=== PATIENT | female | born 1955 | race Caucasian/White ===

== ENCOUNTER 2021-11-05 13:15 | Observation (INO) ==
[2021-11-05] MEDS ORDERED: DUONEB NEB ONE (13:31)
[2021-11-05] MEDS ORDERED: TORADOL IM ONE (13:31)
[2021-11-05] MEDS ORDERED: SOLU-MEDROL 125 MG IM STA (13:31)
--- NOTE | 2021-11-05 13:35 | ED.PDOC ---
General ED Provider: Dr. BROOKS RODARTE MD Chief Complaint: Non-specific Complaint Stated Complaint: mild to mod congested cough and body aches today, hx copd, +covid vaccine and htn, no fever, no lethargy, not on home oxygen Time Seen by Provider: 11/05/21 13:28 Mode of Arrival: Walk-In Information Source: Patient Nursing and Triage Documentation Reviewed and Agree: Yes Does patient meet sepsis criteria?: No System Inflammatory Response Syndrome: Not Applicable Sepsis Protocol: For patient's 13 years and over: Temp is 96.8 and below OR 101 and greater Pulse >90 BPM Resp >20/minute Acutely Altered Mental Status Are patient's symptoms suggestive of a new infection, such as: -Pneumonia -Skin, Soft Tissue -Endocarditis -UTI -Bone, Joint Infection -Implantable Device -Acute Abdominal Infection -Wound Infection -Meningitis -Blood Stream Catheter Infection -Unknown Review of Systems Review Of Systems Constitutional: Reports Malaise; Denies Fever Eyes: Denies Vision change Ears, Nose, Mouth, Throat: Denies Throat pain Respiratory: Reports Cough and Wheezing; Denies Stridor Cardiac: Denies Chest pain GI: Denies Abdominal pain or Vomiting : Denies Frequency Musculoskeletal: Denies Neck pain Skin: Denies Rash or Cyanosis Neurological: Denies Cognitive dysfunction All Other Systems: Other Physical Exam Physical Exam Appearance: Reports No pain distress Ill-appearing: None Pain Distress: None Eyes: Reports Conjunctiva clear ENT: Reports Rhinorrhea Neck: Supple Respiratory: Reports Airway patent and Wheezes; Denies Retractions Cardiovascular: Reports RRR GI/: Reports Nontender Musculoskeletal: Reports ROM intact Skin: Reports Warm and Dry Neurological: Reports Alert and Oriented Psychiatric: Reports Affect appropriate Interpretation Radiology Interpretation Radiology Interpretation By: Radiologist Exam Interpreted: CXR Xray Comments: left base infil Critical Care Note Critical Care Note Total Critical Care Time (mins): 0 Course Course Hematology/Chemistry: 11/05/21 13:45 11/05/21 13:45 Orders, Labs, Meds: Lab Review 11/05/21 11/05/21 11/05/21 13:45 13:45 13:45 WBC 12.37 H RBC 5.14 Hgb 14.8 Hct 43.5 MCV 84.6 MCH 28.8 MCHC 34.0 RDW Coeff of Kyung 12.6 Plt Count 289 Immature Gran % (Auto) 0.3 Neut % (Auto) 61.5 Lymph % (Auto) 28.7 [place] % (Auto) 6.2 Eos % (Auto) 2.7 Baso % (Auto) 0.6 Neut # (Auto) 7.6 H Lymph # (Auto) 3.6 H [place] # (Auto) 0.8 Eos # (Auto) 0.3 Baso # (Auto) 0.1 Immature Gran # (Auto) 0.0 Sodium 140.5 Potassium 3.92 Chloride 104.3 Carbon Dioxide 29.6 Anion Gap 10.52 BUN 11.6 Creatinine 0.80 Estimated GFR (MDRD) 72.00 BUN/Creatinine Ratio 14.50 Glucose 164.5 H Lactic Acid 1.16 Calcium 9.09 Total Bilirubin 0.35 AST 22.9 ALT 18.7 Alkaline Phosphatase 84.5 Total Protein 7.92 Albumin 4.30 Globulin 3.62 Albumin/Globulin Ratio 1.18 SARS CoV-2 RNA Rapid ARABELLA 11/05/21 13:45 WBC RBC Hgb Hct MCV MCH MCHC RDW Coeff of Kyung Plt Count Immature Gran % (Auto) Neut % (Auto) Lymph % (Auto) [place] % (Auto) Eos % (Auto) Baso % (Auto) Neut # (Auto) Lymph # (Auto) [place] # (Auto) Eos # (Auto) Baso # (Auto) Immature Gran # (Auto) Sodium Potassium Chloride Carbon Dioxide Anion Gap BUN Creatinine Estimated GFR (MDRD) BUN/Creatinine Ratio Glucose Lactic Acid Calcium Total Bilirubin AST ALT Alkaline Phosphatase Total Protein Albumin Globulin Albumin/Globulin Ratio SARS CoV-2 RNA Rapid ARABELLA Negative Orders Category Date Time Status CBC W/ AUTO DIFF Stat LAB 11/05/21 13:45 Completed CMP [COMPREHENSIVE METABOLIC PANEL] Stat LAB 11/05/21 13:45 Completed LACTIC ACID Stat LAB 11/05/21 13:45 Completed SARS COV-2 RNA RAPID ARABELLA Stat LAB 11/05/21 13:45 Completed Ipratropium/Albuterol Neb [Duoneb] MEDS 11/05/21 13:31 Discontinued 3 ml NEB ONCE ONE Ketorolac Tromethamine [Toradol] MEDS 11/05/21 13:31 Discontinued 30 mg IM ONCE ONE Methylprednisolone Sod Succ/Pf [Solu-Medrol 125 mg] MEDS 11/05/21 13:31 Discontinued 125 mg IM ONCE STA CHEST, 1V AP ONLY Stat RADS 11/05/21 13:31 Completed Medications Discontinued Medications Generic Name Dose Route Start Last Admin Trade Name Jerry PRN Reason Stop Dose Admin Albuterol/Ipratropium 3 ml 11/05/21 13:31 11/05/21 13:58 Ipratropium/Albuterol Vial.Neb NEB 11/05/21 13:32 3 ml ONCE ONE Administration Ketorolac Tromethamine 30 mg 11/05/21 13:31 11/05/21 13:40 Ketorolac Tromethamine 30 Mg/Ml Vial IM 11/05/21 13:32 30 mg ONCE ONE Administration Methylprednisolone Sodium Succinate 125 mg 11/05/21 13:31 11/05/21 13:40 Methylprednisolone Sod Succ/Pf 125 Mg/2 Ml Vial IM 11/05/21 13:32 125 mg ONCE STA Administration Vital Signs: Temp Pulse Resp BP Pulse Ox 11/05/21 15:30 98.0 F 80 18 176/92 H 93 L 11/05/21 13:21 98.1 F 93 18 179/99 H 92 L Discharge Plan Discharge Patient Disposition: PLACED OBSERVATION Discharge Problem: Pneumonia involving left lung Prescriptions: No Action atorvastatin 40 mg Tablet 40 mg PO BEDTIME carvedilol 12.5 mg Tablet 12.5 mg PO BID Did you review [place] CODING TECHNICIAN?: Not Applicable ED Provider: BROOKS RODARTE Condition: Stable Physician Progress Note: admit to tele obs for pneumonia and hypoxia to hospitalist []
[2021-11-05 13:50] LABS: BASOPHILS # (AUTO) 0.1 K/uL (0-0.2); BASOPHILS % (AUTO) 0.6 % (0.0-3.0); EOSINOPHILS # (AUTO) 0.3 K/ul (0.0-0.7); EOSINOPHILS % (AUTO) 2.7 % (0.0-7.0); HEMATOCRIT 43.5 % (37.0-47.0); HEMOGLOBIN 14.8 g/dl (12.0-16.0); IMMATURE GRANULOCYTE % (AUTO) 0.3 % (0.0-5.0); LYMPHOCYTES # (AUTO) 3.6 K/uL (0.60-3.4); LYMPHOCYTES % (AUTO) 28.7 (10.0-50.0); MEAN CORPUSCULAR HEMOGLOBIN 28.8 pg (27.0-31.0); MEAN CORPUSCULAR VOLUME 84.6 fl (81.0-99.0); MONOCYTES # (AUTO) 0.8 K/uL (0.4-2.0); MONOCYTES % (AUTO) 6.2 (0-10); NEUTROPHILS # (AUTO) 7.6 K/ul (2.0-6.9); NEUTROPHILS % (AUTO) 61.5 % (42.2-75.2); PLATELET COUNT 289 10^3/uL (140-440); RDW COEFFICIENT OF VARIATION 12.6 % (11.6-14.8); RED BLOOD COUNT 5.14 10^6/ul (4.20-5.40); WHITE BLOOD COUNT 12.37 K/ul (4.6-10.2)
[2021-11-05 14:11] LABS: ALANINE AMINOTRANSFERASE 18.7 U/L (0-35); ALKALINE PHOSPHATASE 84.5 U/L (53-141); ASPARTATE AMINO TRANSFERASE 22.9 U/L (14-36); BILIRUBIN,TOTAL 0.35 mg/dL (0.2-1.3); BLOOD UREA NITROGEN 11.6 mg/dL (7-17); CALCIUM 9.09 mg/dL (8.4-10.2); CARBON DIOXIDE 29.6 mmol/L (22-30.0); CHLORIDE 104.3 mmol/L (98-107); GLUCOSE 164.5 mg/dL (74-106); POTASSIUM 3.92 mmol/L (3.5-5.1); SODIUM 140.5 mmol/L (134.5-145); TOTAL PROTEIN 7.92 g/dL (6.3-8.2)
--- NOTE | 2021-11-05 15:19 | DI ---
EXAM: Chest one view, frontal view only. HISTORY: Cough. COMPARISON: None. FINDINGS: Heart size at the upper limits of normal. Question coronary stent. No vascular congestio n. There is increased opacity in the lateral left lung base although assessment limited due to mike ble technique. Probable scarring in both lung apices. No pneumothorax. No acute osseous abnormalit y. IMPRESSION: Left basilar opacity may be accentuated by technique. Consolidation not excluded. Follow-up PA and lateral chest radiograph recommended.
[2021-11-05] MEDS ORDERED: TYLENOL PO PRN (16:56)
[2021-11-05] MEDS ORDERED: SODIUM CHLORIDE 500 ML IV SCH (17:00)
[2021-11-05] MEDS ORDERED: LEVAQUIN 750 MG/150 ML D5W 750 MG/150 ML BAG IV SCH (17:30)
[2021-11-05 17:51] LABS: TROPONIN I < 0.012 ng/ml (0.0000-0.120)
[2021-11-05] MEDS: COREG PO SCH (19:27)
[2021-11-05 20:34] VITALS: BMI 31.2
[2021-11-05] MEDS ORDERED: LIPITOR PO SCH (21:00)
[2021-11-05] MEDS: DUONEB NEB PRN (21:30)
[2021-11-06] MEDS: DUONEB NEB PRN (04:55)
[2021-11-06 05:11] VITALS: BP 157/88; TEMP 97.3
[2021-11-06 05:24] LABS: BASOPHILS % (AUTO) 0.1 % (0.0-3.0); HEMATOCRIT 40.9 % (37.0-47.0); HEMOGLOBIN 13.7 g/dl (12.0-16.0); IMMATURE GRANULOCYTE # (AUTO) 0.1 (0.0-1.0); IMMATURE GRANULOCYTE % (AUTO) 0.6 % (0.0-5.0); LYMPHOCYTES # (AUTO) 1.6 K/uL (0.60-3.4); MEAN CORPUSCULAR HEMOGLOBIN 28.2 pg (27.0-31.0); MEAN CORPUSCULAR HGB CONC 33.5 (31.8-35.4); MEAN CORPUSCULAR VOLUME 84.3 fl (81.0-99.0); MONOCYTES # (AUTO) 0.4 K/uL (0.4-2.0); NEUTROPHILS # (AUTO) 12.3 K/ul (2.0-6.9); NEUTROPHILS % (AUTO) 85.3 % (42.2-75.2); PLATELET COUNT 292 10^3/uL (140-440); RDW COEFFICIENT OF VARIATION 12.5 % (11.6-14.8); RED BLOOD COUNT 4.85 10^6/ul (4.20-5.40); WHITE BLOOD COUNT 14.37 K/ul (4.6-10.2)
[2021-11-06 05:39] LABS: ALBUMIN 4.16 g/dL (3.5-5.0); ALKALINE PHOSPHATASE 81.4 U/L (53-141); ASPARTATE AMINO TRANSFERASE 29.9 U/L (14-36); BLOOD UREA NITROGEN 14.8 mg/dL (7-17); CALCIUM 9.18 mg/dL (8.4-10.2); CHLORIDE 107.5 mmol/L (98-107); CREATININE 0.68 mg/dL (0.60-1.30); GLUCOSE 190.5 mg/dL (74-106); POTASSIUM 4.29 mmol/L (3.5-5.1); SODIUM 140.1 mmol/L (134.5-145); TOTAL PROTEIN 7.57 g/dL (6.3-8.2)
[2021-11-06 05:51] LABS: TROPONIN I < 0.012 ng/ml (0.0000-0.120)
[2021-11-06] MEDS: COREG PO SCH (09:07)
[2021-11-06 09:33] LABS: ABG O2 HGB 92.3 % (95-100); BEecf 0 (-2.0-3.0); COHb 3.5 (0.5-1.5); HCO3 24.8 (21-28); MetHb 1.2 (0-1.5); sO2 93.8 % (94-98); tHb 13.7 g/dl (11.7-17.4)
--- NOTE | 2021-11-06 11:02 | PCM.DC ---
Final Diagnosis: Pneumonia. COPD exacerbation. Physical Exam Appearance: Well-appearing Ill-appearing: None Pain Distress: None Eyes: MAUREEN ENT: Oropharynx normal Neck: Supple Respiratory: Airway patent and Rhonchi Cardiovascular: RRR and Pulses normal GI/: Soft and Nontender Skin: Warm and Dry Neurological: Sensation intact, Motor intact and Alert Psychiatric: Affect appropriate and Mood appropriate Reason for Hospitalization: Mild pneumonia with COPD exacerbation and mild hypoxemia. Prognosis/Condition at Discharge: Good. Stable. Medications at Discharge: Medications at Discharge (Home Meds & RX) atorvastatin 40 mg tablet 40 mg PO BEDTIME 11/05/21 carvedilol 12.5 mg tablet 12.5 mg PO BID 11/05/21 levofloxacin 500 mg tablet 500 mg PO DAILY #7 tabs 11/06/21 methylprednisolone 4 mg tablets in a dose pack (Medrol (Rl)) See Rx Instructions .Route .COMPLEX #21 ea 11/06/21 Lab/Diagnostics: Laboratory Tests 11/05/21 11/05/21 11/05/21 13:45 13:45 13:45 WBC 12.37 H RBC 5.14 Hgb 14.8 Hct 43.5 MCV 84.6 MCH 28.8 MCHC 34.0 RDW Coeff of Kyung 12.6 Plt Count 289 Immature Gran % (Auto) 0.3 Neut % (Auto) 61.5 Lymph % (Auto) 28.7 [place] % (Auto) 6.2 Eos % (Auto) 2.7 Baso % (Auto) 0.6 Neut # (Auto) 7.6 H Lymph # (Auto) 3.6 H [place] # (Auto) 0.8 Eos # (Auto) 0.3 Baso # (Auto) 0.1 Immature Gran # (Auto) 0.0 Puncture Site Base Excess O2 Saturation ABG pH ABG pCO2 ABG pO2 ABG HCO3 ABG Total CO2 Cesar Test Hemoglobin Oxyhemoglobin Carboxyhemoglobin Total Hemoglobin FiO2 % Sodium 140.5 Potassium 3.92 Chloride 104.3 Carbon Dioxide 29.6 Anion Gap 10.52 BUN 11.6 Creatinine 0.80 Estimated GFR (MDRD) 72.00 BUN/Creatinine Ratio 14.50 Glucose 164.5 H Lactic Acid 1.16 Calcium 9.09 Total Bilirubin 0.35 AST 22.9 ALT 18.7 Alkaline Phosphatase 84.5 Troponin I < 0.012 Total Protein 7.92 Albumin 4.30 Globulin 3.62 Albumin/Globulin Ratio 1.18 SARS CoV-2 RNA Rapid ARABELLA 11/05/21 11/05/21 11/05/21 13:45 16:37 23:03 WBC RBC Hgb Hct MCV MCH MCHC RDW Coeff of Kyung Plt Count Immature Gran % (Auto) Neut % (Auto) Lymph % (Auto) [place] % (Auto) Eos % (Auto) Baso % (Auto) Neut # (Auto) Lymph # (Auto) [place] # (Auto) Eos # (Auto) Baso # (Auto) Immature Gran # (Auto) Puncture Site Base Excess O2 Saturation ABG pH ABG pCO2 ABG pO2 ABG HCO3 ABG Total CO2 Cesar Test Hemoglobin Oxyhemoglobin Carboxyhemoglobin Total Hemoglobin FiO2 % Sodium Potassium Chloride Carbon Dioxide Anion Gap BUN Creatinine Estimated GFR (MDRD) BUN/Creatinine Ratio Glucose Lactic Acid Calcium Total Bilirubin AST ALT Alkaline Phosphatase Troponin I < 0.012 < 0.012 Total Protein Albumin Globulin Albumin/Globulin Ratio SARS CoV-2 RNA Rapid ARABELLA Negative 11/06/21 11/06/21 11/06/21 04:55 04:55 09:20 WBC 14.37 H RBC 4.85 Hgb 13.7 Hct 40.9 MCV 84.3 MCH 28.2 MCHC 33.5 RDW Coeff of Kyung 12.5 Plt Count 292 Immature Gran % (Auto) 0.6 Neut % (Auto) 85.3 H Lymph % (Auto) 11.0 [place] % (Auto) 3.0 Eos % (Auto) 0.0 Baso % (Auto) 0.1 Neut # (Auto) 12.3 H Lymph # (Auto) 1.6 [place] # (Auto) 0.4 Eos # (Auto) 0.0 Baso # (Auto) 0.0 Immature Gran # (Auto) 0.1 Puncture Site Rr Base Excess 0 O2 Saturation 93.8 L ABG pH 7.40 ABG pCO2 40.0 ABG pO2 70.0 L ABG HCO3 24.8 ABG Total CO2 26.0 H Cesar Test Pos Hemoglobin 1.2 Oxyhemoglobin 92.3 L Carboxyhemoglobin 3.5 H Total Hemoglobin 13.7 FiO2 % 21.0 Sodium 140.1 Potassium 4.29 Chloride 107.5 H Carbon Dioxide 24.0 Anion Gap 12.89 BUN 14.8 Creatinine 0.68 Estimated GFR (MDRD) 87.00 BUN/Creatinine Ratio 21.76 Glucose 190.5 H Lactic Acid Calcium 9.18 Total Bilirubin 0.30 AST 29.9 ALT 19.0 Alkaline Phosphatase 81.4 Troponin I < 0.012 Total Protein 7.57 Albumin 4.16 Globulin 3.41 Albumin/Globulin Ratio 1.21 SARS CoV-2 RNA Rapid ARABELLA Education Provided to Patient and Family: Per RN Follow-ups: PCP one week. Discharge Disposition: Home Hospital Course: Mild pneumonia, COPD exacerbation, transient hypoxemia. Treatment with IV levaquin, steroids, neb tx. Sat. on RA 94% at time of d/c. She has neb. at home along with albuterol MDI. Plan: Levaquin one more week. Medrol. Cont. home med. Establish with PCP. This discharge done with a [id number] exam and documentation entailing 40 minutes.
[2021-11-06] MEDS ORDERED: LEVAQUIN 750 MG/150 ML D5W 750 MG/150 ML BAG IV SCH (21:00)
== END 2021-11-06 11:46 | disposition home or self-care (01) ==
LOC: EDACCT# → MEDSURG A 13:15 → ED 13:15 → MEDSURG A 15:49
PROVIDERS: ADMIT Emergency Medicine Emergency Medical Services; ATTEND Emergency Medicine
DX: Z79.899 Other long term (current) drug therapy; J18.9 Pneumonia, unspecified organism; Z20.822 Contact with and (suspected) exposure to COVID-19; Z51.81 Encounter for therapeutic drug level monitoring; J44.1 Chronic obstructive pulmonary disease with (acute) exacerbation